=== PATIENT | female | born 1940 | race Caucasian/White ===

== ENCOUNTER 2020-04-13 09:35 | Outpatient (CLI) | payer BC, SELFPAY ==
--- NOTE | 2020-04-13 | ECHO_ITS ---
Patient Info Name: Yashira Holloway Age: 80 years : 1940 Gender: Female Ht: 62 in Wt: 135 lbs BSA: 1.65 m2 HR: 79 bpm BP: 148 / 62 mmHg Heart Rhythm: Sinus Rhythm Technical Quality: Good Exam Date: 04/13/2020 10:02 AM Exam Location: [facility] Patient Status: Outpatient Admit Date: 04/13/2020 Staff Ordering Physician: JjChastity [employer] Quality Manager: Ciarra Aguilera RDCS Attending Provider: Jj, Chastity SAPP Referring Physician: Jj MARTE; Exam Type: CA echo doppler color flow Study Info Indications - oconnor Complete two-dimensional, color flow and Doppler transthoracic echocardiogram is performed. Summary 1. Left ventricular systolic function is normal, estimated at 60-65%. 2. The left ventricular diastolic function is grade II diastolic dysfunction. 3. There is mild aortic valve sclerosis. 4. There is trace tricuspid valve regurgitation. 5. No pulmonary hypertension, estimated pulmonary arterial systolic pressure is 37 mmHg. Left Ventricle Left ventricular chamber dimension is normal. Left ventricular systolic function is normal, estimated at 60-65%. There is no increased left ventricular wall thickness. Left ventricular septal wall motion is normal. The left ventricular diastolic function is grade II diastolic dysfunction. Global longitudinal strain is abnormal at -17 %. Right Ventricle Right ventricular chamber dimension is normal. Right ventricular systolic function is normal. Left Atria Left atrial chamber dimension is normal. Right Atria Right atrial chamber dimension is normal. Atrial Septum Intact interatrial septum visualized by color flow imaging. Aortic Valve The aortic valve is trileaflet. There is mild aortic valve sclerosis. There is no aortic valve stenosis. There is no aortic valve regurgitation. Pulmonic Valve The pulmonic valve is normal. There is no pulmonic valve stenosis. There is no pulmonic regurgitation. Mitral Valve The mitral valve has normal leaflets. There is no mitral valve stenosis. There is no mitral valve regurgitation. There is mild mitral valve calcification. Tricuspid Valve The tricuspid valve leaflets are normal. There is no significant tricuspid valve stenosis. There is trace tricuspid valve regurgitation. No pulmonary hypertension, estimated pulmonary arterial systolic pressure is 37 mmHg. Pericardium/Pleural The pericardium appears normal. There is no pericardial effusion. Inferior Vena Cava Normal inferior vena cava with <50% collapse upon inspiration consistent with elevated right atrial pressure, 10 mmHg. Aorta The aortic root size at the sinus of Valsalva is normal. The prox ascending aorta size is normal. Left Ventricular Outflow Tract Name Value Normal LVOT 2D LVOT Diameter 2.0 cm LVOT Doppler LVOT Peak Gradient 4 mmHg LVOT Mean Gradient 3 mmHg LVOT VTI 24 cm LVOT VTI/AV VTI Ratio 0.7 LVOT Stroke Volume 75 ml
== END 2020-04-13 09:36 | disposition home or self-care (01) ==
PROVIDERS: PCP Nurse Practitioner Family; Visit Provider Nurse Practitioner Family
DX: R06.09 Other forms of dyspnea (principal)
CPT/HCPCS: 93306

== ENCOUNTER 2021-03-29 13:35 | Outpatient (CLI) | payer BC, SELFPAY ==
--- NOTE | ~2021-03-29 | XR_ITS ---
XR chest 2V DATE: 03/29/2021 14:07 INDICATION: Cough. Weakness. TECHNIQUE: AP and lateral views COMPARISON: None FINDINGS: There is a large hiatal hernia with air-fluid level. Heart size is within normal range. Is aortic arch and descending thoracic aortic calcification. No hi lar or mediastinal enlargement. No pulmonary infiltrate or consolidation, pleural effusion or pulmonary vascular congestion or pneumo thorax is evident. Osteopenia. IMPRESSION: Large hiatal hernia No active cardiopulmonary disease Aortic atherosclerosis Reviewed, dictated and finalized at location A.
== END 2021-03-29 13:36 | disposition home or self-care (01) ==
LOC: ANHIMG 13:45
PROVIDERS: PCP Nurse Practitioner Family; Visit Provider Nurse Practitioner Family
DX: R05 Cough (principal); K44.9 Diaphragmatic hernia without obstruction or gangrene; I70.0 Atherosclerosis of aorta
CPT/HCPCS: 71046